=== PATIENT | female | born 1995 | race Caucasian/White ===

== ENCOUNTER 2018-07-20 10:46 | Day surgery (SDC) | payer OTHER, BC ==
[~2018-07-20 10:46] MED LIST: ACETAMINOPHEN 500 MG TAB PO
[2018-07-20] MEDS ORDERED: PROPOFOL 40 ML (11:39)
[2018-07-20] MEDS ORDERED: ONDANSETRON 4 MG INJ (11:39)
[2018-07-20] MEDS ORDERED: LIDOCAINE 2% (SDV) 5 ML INJ (11:39)
[2018-07-20] MEDS ORDERED: MIDAZOLAM 1 MG/ML 2 ML INJ (11:39)
[2018-07-20] MEDS ORDERED: CEFAZOLIN 1 GM INJ (11:39)
[2018-07-20] MEDS ORDERED: FENTAnyl 50 MCG/ML VIAL (11:39)
[2018-07-20] MEDS ORDERED: FAMOTIDINE 20 MG INJ (11:40)
[2018-07-20 11:44] LABS: ADD MAN DIFF? NO
[2018-07-20 11:46] LABS: WHITE BLOOD COUNT 6.3 10^3/ul (4.8-10.8)
[2018-07-20 11:46] LABS: BASOPHIL # 0.1 10^3/ul (0.0-0.1); BASOPHILS % 1.8 % (0.0-2.0); EOSINOPHILS # 0.2 10^3/ul (0.0-0.5); EOSINOPHILS % 2.5 % (0.0-7.0); HEMATOCRIT 34.7 % (37.0-47.0); HEMOGLOBIN 10.7 g/dl (12.0-16.0); LYMPHOCYTES # 1.2 10^3/ul (0.8-2.9); LYMPHOCYTES % 19.6 % (15.0-51.0); MEAN CORPUSCULAR HGB CONC 30.8 g/dl (32.0-37.0); MEAN CORPUSCULAR VOLUME 71.4 fl (82.0-101.0); MEAN PLATELET VOLUME 10.8 fl (7.4-10.4); MONOCYTE # 0.3 10^3/ul (0.3-0.9); MONOCYTES % 5.4 % (0.0-11.0); NEUTROPHIL # 4.4 10^3/ul (1.6-7.5); NEUTROPHILS % 70.4 % (39.0-77.0); PLATELET COUNT 242 10^3/UL (140-415); RED BLOOD COUNT 4.86 10^6/ul (4.20-5.40); RED CELL DISTRIBUTION WIDTH 15.5 % (11.5-14.5)
[2018-07-20] MEDS: ACETAMINOPHEN 500 MG TAB PO (11:52)
[2018-07-20] MEDS ORDERED: HYDROmorphONE 1 MG/5 ML IV SYRINGE IV ×3 (12:00)
[2018-07-20] MEDS ORDERED: MEPERIDINE 25 MG INJ IV (12:00)
[2018-07-20] MEDS ORDERED: morphine 2 MG INJ IV ×2 (12:00)
[2018-07-20] MEDS ORDERED: DIPHENHYDRAMINE 50 MG INJ IV (12:00)
[2018-07-20] MEDS ORDERED: OXYCODONE/ACETAMINOPHEN (5/325) TAB PO ×2 (12:00)
[2018-07-20] MEDS ORDERED: FENTAnyl 50 MCG/ML VIAL IV ×2 (12:00)
[2018-07-20] MEDS ORDERED: LABETALOL HCL 20MG INJ IV (12:00)
[2018-07-20] MEDS ORDERED: ONDANSETRON 4 MG INJ IV (12:00)
[2018-07-20] MEDS ORDERED: ALBUTEROL 0.083% (NEB) 2.5 MG/3 ML AMP HHN (12:00)
[2018-07-20] MEDS ORDERED: SODIUM CL BACTERIOSTATIC 30 ML INJ (12:56)
[2018-07-20] MEDS: LIDOCAINE 1%/EPI (1:100,000) (MDV) 20 ML (13:24)
[2018-07-20 13:31] LABS: INR 1.03; PARTIAL THROMBOPLASTIN TIME 28.3 Sec (23.0-35.0); PROTIME 13.6 Sec (11.9-14.9); PT RATIO 1.1
[2018-07-20 13:35] LABS: ALANINE AMINOTRANSFERASE 21 IU/L (13-69); ALBUMIN 4.4 g/dl (3.3-4.9); ALBUMIN/GLOBULIN RATIO 1.76; ALKALINE PHOSPHATASE 37 IU/L (42-121); ANION GAP 5 (5-13); ASPARTATE AMINO TRANSFERASE 34 IU/L (15-46); BILIRUBIN,INDIRECT 0.8 mg/dl (0-1.1); BILIRUBIN,TOTAL 0.8 mg/dl (0.2-1.3); BLOOD UREA NITROGEN 9 mg/dl (7-20); CALCIUM 9.5 mg/dl (8.4-10.2); CARBON DIOXIDE 29 mmol/L (21-31); CHLORIDE 105 mmol/L (97-110); CREATININE 0.69 mg/dl (0.44-1.00); Estimated GFR > 60 mL/min (>60); GLUCOSE 86 mg/dl (70-220); POTASSIUM 4.6 mmol/L (3.5-5.1); SODIUM 139 mmol/L (135-144); TOTAL PROTEIN 6.9 g/dl (6.1-8.1)
== END 2018-07-20 16:10 | disposition home or self-care (01) ==
LOC: SDS 10:46
DX: D06.9 Carcinoma in situ of cervix, unspecified (principal); R87.810 Cervical high risk human papillomavirus (HPV) DNA test positive; D64.9 Anemia, unspecified; F12.90 Cannabis use, unspecified, uncomplicated
CPT/HCPCS: 57522; 80053; 85025; 85610; 85730